=== PATIENT | male | born 1960 | race Caucasian/White ===

== ENCOUNTER → 2017-12-20 06:51 | Outpatient (CLI) | payer OTHER, SELFPAY ==
[2017-12-20 07:02] LABS: Bacteria Urine None Seen; RBC Urine None Seen (0-5/HPF); WBC Urine None Seen (0-5/HPF)
[2017-12-20 08:15] LABS: Appearance Urine UA CLEAR; Bilirubin Urine UA NEGATIVE (NEGATIVE); Color Urine UA YELLOW; Glucose Urine UA TRACE g/dL (Normal); Ketones Urine UA TRACE (NEGATIVE); Leukocyte Esterase Urine UA NEGATIVE (NEGATIVE); Nitrite Urine UA Negative (Negative); Occult Blood Urine UA NEGATIVE (Negative); Protein Urine UA NEGATIVE (Negative); Specific Gravity Urine UA 1.025 (1.000-1.035); Urobilinogen Urine UA 0.2 E.U./dL (0.2); pH Urine UA 5.5 (4.5-8.0)
[2017-12-20 08:21] LABS: Culture Indicated Urine Cult Not Indicated; Urine Comments Microscopic Normal
[2017-12-20 08:54] LABS: BUN Creatinine Ratio 18.9 (6-22); Blood Urea Nitrogen 17 mg/dL (9-20); Calcium 10.3 mg/dL (8.4-10.2); Carbon Dioxide 29 mmol/L (22-32); Chloride 101 mmol/L (98-107); Cholesterol 219 mg/dL (140-199); Estimated Glomerular Filt Rate > 60.0 mL/min (>60); Glucose 136 mg/dL (70-100); HDL Cholesterol 62 mg/dL (40-60); HEMOLYSIS < 15 (0-50); LDL Cholesterol Calculated 133 mg/dL (<100); Potassium 4.3 mmol/L (3.4-5.1); Sodium 139 mmol/L (137-145); Triglycerides 119 mg/dL (35-150)
== END ==
PROVIDERS: PCP Family Medicine; Visit Provider Family Medicine
DX: R30.0 Dysuria (principal); E11.9 Type 2 diabetes mellitus without complications
CPT/HCPCS: 36415; 80048; 80061; 81001; 83036

== ENCOUNTER → 2018-02-21 15:25 | Outpatient (CLI) | payer OTHER, SELFPAY ==
--- NOTE | 2018-02-21 15:26 | DI.US.S_ITS ---
PROCEDURE: US SCROTUM INDICATIONS: rt testicular scrotal pain with bladder pain TECHNIQUE: Real-time scanning was performed of the scrotum and testicles, with image documentation. Color and pulse Doppler interrogation was performed of both testicles. COMPARISON: [facility], CT, KIDNEY/ URETER/BLADDER, 11/24/2013, 5:33. FINDINGS: Right: Testicle is normal in size at 4.2 x 2.2 x 2.4 cm, and homogenous in echotexture. Epididymis is normal in overall size and morphology. Subcentimeter epididymal cysts No hydrocele and moderate varicocele. Overlying scrotal skin is normal in thickness. Left: Testicle is normal in size at 3.6 x 2.1 x 1.9 cm, and homogeneous in echotexture. Epididymis is normal in overall size and morphology. No hydrocele in moderate left varicocele. Overlying scrotal skin is normal in thickness. Doppler: Color and pulse Doppler demonstrate normal and symmetric arterial flow in both testicles. IMPRESSION: 1. Normal testicles bilaterally. 2. Subcentimeter right epididymal cyst. 3. Bilateral varicoceles, left greater than right. Dictated by: Vin IZAGUIRRE Interpreted: Mark Vidal MD on 02/21/2018 at 16:35 Approved by: Mark Vidal M.D. on 02/21/2018 at 17:33
== END ==
PROVIDERS: Family Provider Family Medicine; PCP Family Medicine; Visit Provider Family Medicine
DX: I86.1 Scrotal varices (principal); N50.82 Scrotal pain; N50.3 Cyst of epididymis; R39.89 Other symptoms and signs involving the genitourinary system
CPT/HCPCS: 76870

== ENCOUNTER → 2018-02-24 08:05 | Outpatient (CLI) | payer OTHER, SELFPAY ==
--- NOTE | 2018-02-24 08:46 | DI.CT.S_ITS ---
PROCEDURE: CT KIDNEY URETER BLADDER (KUB) INDICATIONS: Right testicular scrotal pain with bladder pain TECHNIQUE: Noncontrast 5 mm thick sections acquired from the diaphragms to the symphysis. 5 mm thick coronal and sagittal reformats were then performed. For radiation dose reduction, the following was used: automated exposure control, adjustment of mA and/or kV according to patient size. COMPARISON: , CT, KIDNEY/ URETER/BLADDER, 11/24/2013, 5:33. FINDINGS: Image quality: Excellent. Please note that the scrotum and testicles was not included on [id number] this exam. Lung bases: Lung bases are clear. Heart size is normal. Urinary system: Both kidneys are normal in size. There are 2 nonobstructing nephroliths in the left kidney, largest measuring up to 4 mm in greatest diameter. No hydronephrosis or perinephric fat stranding. Both ureters appear non-dilated throughout their expected courses. Bladder wall thickness is normal; no calcified bladder stones. There are possible small posterior bilateral bladder diverticula, although evaluation is suboptimal due to lack of contrast. Previously noted stone at the distal left ureter/ureterovesicular junction is no longer seen. Other solid organs: Liver is normal in size. Gallbladder is unremarkable. Pancreas is normal in contours. Spleen is normal in size. No adrenal nodules. Peritoneum and bowel: Unenhanced bowel loops demonstrate normal wall thickness and caliber. No free fluid or air. Normal appendix. Colonic diverticulosis without evidence of acute diverticulitis. Nodes and vessels: No retroperitoneal or mesenteric adenopathy by size criteria. Aorta and inferior vena cava are normal in caliber. Abdominal wall: No ventral hernias. Pelvis: No free pelvic fluid. No inguinal hernias or adenopathy. Bones: There are severe multilevel degenerative changes of the lower lumbar spine with L4 pars defects resulting in approximately 1.0 cm of anterolisthesis of L4 on L5. IMPRESSION: #1. Nonobstructing left nephrolithiasis, measuring up to 4 mm in greatest diameter. #2. Multilevel degenerative changes of the lumbar spine resulting in anterolisthesis of L4 on L5. #3. Please note that this CT exam did not include the scrotum and testicles; recommend clinical followup for patient's reported right testicular scrotal pain. Dictated by: Jaxon Abarca M.D. on 02/24/2018 at 9:44 Approved by: Jaxon Abarca M.D. on 02/24/2018 at 10:08
== END ==
PROVIDERS: Family Provider Family Medicine; PCP Family Medicine; Visit Provider Family Medicine
DX: R39.89 Other symptoms and signs involving the genitourinary system (principal); R10.31 Right lower quadrant pain; N20.0 Calculus of kidney; N50.811 Right testicular pain; N50.82 Scrotal pain; M43.16 Spondylolisthesis, lumbar region; I86.1 Scrotal varices
CPT/HCPCS: 74176

== ENCOUNTER → 2019-01-06 11:18 | Outpatient (CLI) | payer OTHER, SELFPAY ==
[2019-01-06 12:21] LABS: Add Manual Diff / Slide Review NO; Basophils Absolute Auto 0 /uL (0-100); Basophils Percent Auto 0.7 % (0-2); Eosinophils Absolute Auto 100 /uL (0-450); Eosinophils Percent Auto 1.2 % (2-4); Hematocrit 44.6 % (41-53); Hemoglobin 15.5 g/dL (13.5-17.5); Lymphocytes Absolute Auto 2700 /uL (1100-4500); Lymphocytes Percent Auto 46.6 % (25-40); Mean Corpuscular HGB Conc 34.7 % (30-36); Mean Corpuscular Hemoglobin 32.4 PG (26-34); Mean Corpuscular Volume 93.3 fL (80-100); Monocytes Absolute Auto 600 /uL (0-900); Monocytes Percent Auto 10.2 % (3-14); Neutrophils Absolute Auto 2400 /uL (1500-7000); Neutrophils Percent Auto 41.3 % (50-75); Platelet Count 302 X10^3/uL (150-400); Red Blood Cell Count 4.78 X10^6/uL (4.5-5.9); Red Cell Distribution Width 13.5 % (11.6-14.8); White Blood Cell Count 5.8 X10^3/uL (4.5-11.0)
[2019-01-06 12:29] LABS: Alanine Aminotransferase 24 IU/L (21-72); Albumin 4.6 g/dL (3.5-5.0); Albumin Globulin Ratio 1.5 (1.0-2.8); Alkaline Phosphatase 100 U/L (38-126); Aspartate Aminotransferase 27 IU/L (17-59); BUN Creatinine Ratio 18.8 (6-22); Bilirubin Total 0.7 mg/dL (0.2-1.3); Blood Urea Nitrogen 15 mg/dL (9-20); Calcium 10.5 mg/dL (8.4-10.2); Carbon Dioxide 27 mmol/L (22-32); Chloride 101 mmol/L (98-107); Cholesterol 249 mg/dL (140-199); Estimated Glomerular Filt Rate > 60.0 mL/min (>60); Glucose 159 mg/dL (70-100); HDL Cholesterol 69 mg/dL (40-60); HEMOLYSIS < 15 (0-50); LDL Cholesterol Calculated 147 mg/dL (<100); Potassium 4.9 mmol/L (3.4-5.1); Sodium 138 mmol/L (137-145); Total Protein 7.6 g/dL (6.3-8.2); Triglycerides 166 mg/dL (35-150)
[2019-01-06 12:42] LABS: Creatinine Urine Random 89.6 mg/dL
[2019-01-06 12:46] LABS: Microalbumi Creatinin Ratio Ur 23.4 ug/mg CR (<30); Microalbumin Urine Random 2.1 mg/dL (0-1.6)
[2019-01-06 13:00] LABS: Prostate Specific Antigen 0.245 ng/mL (0.10-4.00); Thyroid Stimulating Hormone 1.04 uIU/mL (0.47-4.68)
== END ==
PROVIDERS: Family Provider Family Medicine; PCP Family Medicine; Visit Provider Family Medicine
DX: E29.1 Testicular hypofunction (principal)
CPT/HCPCS: 36415; 80053; 80061; 82043; 82570; 83036; 84153; 84403; 84443; 85025

== ENCOUNTER → 2019-04-06 09:35 | Outpatient (CLI) | payer OTHER, SELFPAY ==
[2019-04-06 11:20] LABS: Alanine Aminotransferase 20 IU/L (21-72); Albumin 4.3 g/dL (3.5-5.0); Albumin Globulin Ratio 1.4 (1.0-2.8); Alkaline Phosphatase 87 U/L (38-126); Aspartate Aminotransferase 26 IU/L (17-59); BUN Creatinine Ratio 18.8 (6-22); Bilirubin Total 0.4 mg/dL (0.2-1.3); Blood Urea Nitrogen 15 mg/dL (9-20); Calcium 9.9 mg/dL (8.4-10.2); Carbon Dioxide 28 mmol/L (22-32); Chloride 103 mmol/L (98-107); Estimated Glomerular Filt Rate > 60.0 mL/min (>60); Glucose 178 mg/dL (70-100); HEMOLYSIS 20 (0-50); Potassium 4.4 mmol/L (3.4-5.1); Sodium 139 mmol/L (137-145); Total Protein 7.3 g/dL (6.3-8.2)
== END ==
PROVIDERS: PCP Family Medicine; Visit Provider Internal Medicine Cardiovascular Disease
DX: I48.3 Typical atrial flutter (principal)
CPT/HCPCS: 36415; 80053

== ENCOUNTER → 2019-05-16 07:47 | Outpatient (CLI) | payer OTHER, SELFPAY ==
[2019-05-19 17:24] LABS: Testosterone Free 45.3 pg/mL (35.0-155.0); Testosterone Total 185 ng/dL (250-1100)
== END ==
PROVIDERS: PCP Family Medicine; Visit Provider Family Medicine
DX: R68.82 Decreased libido (principal)
CPT/HCPCS: 36415; 84402; 84403

== ENCOUNTER → 2019-09-10 09:56 | Outpatient (CLI) | payer OTHER, SELFPAY ==
[2019-09-10 11:27] LABS: Influenza A - CEPHEID Flu A NEGATIVE (NEGATIVE); Influenza B - CEPHEID Flu B NEGATIVE (NEGATIVE)
[2019-09-12 11:58] LABS: COVID19 Sendout Not Detected (Not Detected)
== END ==
PROVIDERS: PCP Family Medicine; Visit Provider Family Medicine
DX: R68.89 Other general symptoms and signs (principal)
CPT/HCPCS: 87502; 87635

== ENCOUNTER → 2019-12-17 09:17 | Outpatient (CLI) | payer OTHER, SELFPAY ==
[2019-12-17 11:22] LABS: Prostate Specific Antigen 0.197 ng/mL (0.10-4.00)
[2019-12-17 11:24] LABS: Testosterone 131 ng/dL (71.8-623)
== END ==
PROVIDERS: PCP Family Medicine; Referring Provider Urology; Visit Provider Urology
DX: N40.1 Benign prostatic hyperplasia with lower urinary tract symptoms (principal); E29.1 Testicular hypofunction
CPT/HCPCS: 36415; 84153; 84403

== ENCOUNTER → 2020-07-02 06:46 | Outpatient (CLI) | payer OTHER, SELFPAY ==
--- NOTE | 2020-07-02 07:01 | DI.CT.S_ITS ---
PROCEDURE: CT SINUS SCREEN WO CON INDICATIONS: chronic sinusitis TECHNIQUE: Noncontrast 3.0 mm axial images acquired from the frontal sinuses to the mid-sella, with coronal and sagittal reformats. For radiation dose reduction, the following was used: automated exposure control, adjustment of mA and/or kV according to patient size. COMPARISON: None. FINDINGS: Image quality: Excellent. Maxillary Sinuses: No bony remodeling or destruction. Sinuses are clear. Ethmoid Air Cells: No bony remodeling or destruction. Sinuses are clear. Sphenoid Sinuses: No bony remodeling or destruction. Sinuses are clear. Frontal Sinuses: No bony remodeling or destruction. Sinuses are clear. Ostiomeatal Complexes: Ostiomeatal complexes are patent. No Reina cells. Miscellaneous: Visualized intra-orbital contents are normal. No winnie bullosa or paradoxical turbinate curvature. There is significant rightward nasal septal deviation at the middle 3rd of the nasal septum, with secondary right-sided nasal airway stenosis.. IMPRESSION: No air-fluid level or mucosal thickening found but there is relatively prominent rightward deviation of the midline nasal septum with secondary right nasal airway stenosis. Dictated by: Mark Vidal M.D. on 07/02/2020 at 9:17 Approved by: Mark Vidal M.D. on 07/02/2020 at 9:18
== END ==
PROVIDERS: PCP Family Medicine; Referring Provider Family Medicine; Visit Provider Family Medicine
DX: J32.9 Chronic sinusitis, unspecified (principal); J34.2 Deviated nasal septum; J34.89 Other specified disorders of nose and nasal sinuses
CPT/HCPCS: 70486

== ENCOUNTER → 2020-08-16 11:52 | Outpatient (CLI) | payer OTHER, SELFPAY ==
[2020-08-16 13:51] LABS: COVID19 -Nasal RAPID Negative (Negative)
== END ==
PROVIDERS: PCP Family Medicine; Visit Provider Nurse Practitioner
DX: Z20.822 Contact with and (suspected) exposure to COVID-19 (principal)
CPT/HCPCS: 87635

== ENCOUNTER 2020-08-19 06:28 | Day surgery (SDC) | payer OTHER, SELFPAY ==
[2020-08-19] MEDS: PROPARACAINE 0.5% OPHTH SOL 2 DROPS EYE-OP (07:00)
[2020-08-19] MEDS: CATARACT EYE COMPOUND (10 DROPS/SYRINGE) 3 DROPS EYE-OP (07:05)
[2020-08-19 07:06] VITALS: BP 163/82; PULSE 73; RESP 18; TEMP 36.1; O2SAT 95
--- NOTE | 2020-08-19 07:32 | P.OP_ITS ---
Operative Date/Time/Diagnoses Pre-op diagnosis: Nuclear Cataract Left eye Post-op diagnosis: same Procedure & Clinicians Same procedure as scheduled: Yes Surgeon: Sherman Chan Anesthesia Type: MAC +/- and Sedation Operative Notes Procedure in detail: Patient brought to the operating suite. Tetracaine drops placed in the left eye. Patient was prepped and draped in sterile manner. Wire lid speculum was placed in the eye. Betadine drops were placed on the eye. This was irrigated. Lidocaine jelly was placed on the eye. A paracentesis port was created with a side-port blade. 0.1 mL 1% preservative free lidocaine was injected into the anterior chamber. The anterior chamber was deepened with viscoelastic. 2.6 mm keratome was used to create a temporal clear corneal incision. Cystotome and Utrata forceps were used to create continuous tear capsulorrhexis. Balanced salt solution was used to hydro dissect the nucleus. The phacoemulsification handpiece was inserted and the nucleus was removed using the stop and chop technique. The irrigation aspiration handpiece was inserted and the remaining cortex was removed. Anterior chamber was deepened with viscoe lastic. An Garner ZCB00 intraocular lens with a power of 21.5 was injected into the capsular bag. Irrigation aspiration handpiece was inserted and the remaining viscoelastic was removed. Incision was hydrated with balanced salt solution and found to be leak free with pressure with Weck-Anat sponges. 0.1 mL Vigamox injected anterior chamber. 0.3 mL Kenalog 10 mg was injected subconjunctivally. Lid speculum was removed. The patient left the operating room in excellent condition. Complications: none Post-operative Condition: stable Disposition: same day surgery
--- NOTE | 2020-08-19 07:32 | PM.PREOP ---
Pre-operative Note Interval Note History & Physical reviewed/Exam performed by Physician: Yes Changes to H&P: No
[2020-08-19] MEDS: PHENYLEPHRINE/LIDOCAINE VIAL (OR) 0.2 ML EYE-OP (07:56)
[2020-08-19] MEDS: TRIAMCINOLONE 50 MG/5 ML VIAL INJ (07:56)
[2020-08-19] MEDS: MOXIFLOXACIN INJ 5 MG/ML VIAL EYE-OP (07:56)
[2020-08-19] MEDS: BALANCED SALT IRRIG SOLN NO.2 500 ML, EPINEPHrine 1 MG IRR (07:56)
[2020-08-19] MEDS: LIDOCAINE JELLY 2% 5 ML 1 APPLIC TOP (07:57)
[2020-08-19] MEDS: TETRACAINE 0.5% OPHTH DROPS 4 ML 2 DROPS EYE-OP (07:57)
[2020-08-19] MEDS: CHONDROIDTIN/SOD HYALURONATE 1.05 ML SYRINGE INTRAOCULA (07:57)
[2020-08-19 08:10] VITALS: BP 151/79; PULSE 72; RESP 16; TEMP 36.6; O2SAT 98
--- NOTE | 2020-08-19 08:19 | SUR.PHASEII ---
pt given discharge instructions. pt states he understands discharge instructions. Pt talking and denies any complaints. Pt drinking coffee without difficulty.
== END 2020-08-19 08:27 | disposition home or self-care (01) ==
PROVIDERS: PCP Family Medicine; Referring Provider Ophthalmology; Visit Provider Ophthalmology
PROC: (CPT 66984; principal; 2020-08-19 07:45)
DX: H25.11 Age-related nuclear cataract, right eye (principal); F41.9 Anxiety disorder, unspecified; I10 Essential (primary) hypertension; E11.9 Type 2 diabetes mellitus without complications; E78.5 Hyperlipidemia, unspecified
CPT/HCPCS: 66984; J0171; J2250; J3010; J3301

== ENCOUNTER → 2020-11-15 09:07 | Outpatient (CLI) | payer OTHER, SELFPAY ==
[2020-11-15 11:49] LABS: COVID19 -Nasal RAPID Negative (Negative)
== END ==
PROVIDERS: PCP Family Medicine; Visit Provider Physician Assistant
DX: Z01.812 Encounter for preprocedural laboratory examination (principal); Z20.822 Contact with and (suspected) exposure to COVID-19
CPT/HCPCS: 87635

== ENCOUNTER 2020-11-18 06:31 | Day surgery (SDC) | payer OTHER, SELFPAY ==
[2020-11-18 07:09] VITALS: BP 172/93; PULSE 77; RESP 18; TEMP 36.3; O2SAT 97; BMI 30.5
[2020-11-18] MEDS: PROPARACAINE 0.5% OPHTH SOL 2 DROPS EYE-OP (07:10)
[2020-11-18] MEDS: CATARACT EYE COMPOUND (10 DROPS/SYRINGE) 3 DROPS EYE-OP (07:20)
--- NOTE | 2020-11-18 07:34 | P.OP_ITS ---
Operative Date/Time/Diagnoses Pre-op diagnosis: Nuclear Cataract Left eye Post-op diagnosis: same Procedure & Clinicians Same procedure as scheduled: Yes Surgeon: Sherman Chan Anesthesia Type: MAC +/- and Sedation Operative Notes Procedure in detail: Patient brought to the operating suite. Tetracaine drops placed in the left eye. Patient was prepped and draped in sterile manner. Wire lid speculum was placed in the eye. Betadine drops were placed on the eye. This was irrigated. Lidocaine jelly was placed on the eye. A paracentesis port was created with a side-port blade. 0.1 mL 1% preservative free lidocaine was injected into the anterior chamber. The anterior chamber was deepened with viscoelastic. 2.6 mm keratome was used to create a temporal clear corneal incision. Cystotome and Utrata forceps were used to create continuous tear capsulorrhexis. Balanced salt solution was used to hydro dissect the nucleus. The phacoemulsification handpiece was inserted and the nucleus was removed using the stop and chop technique. The irrigation aspiration handpiece was inserted and the remaining cortex was removed. Anterior chamber was deepened with viscoe lastic. An Garner DIB00 intraocular lens with a power of 21.0 was injected into the capsular bag. Irrigation aspiration handpiece was inserted and the remaining viscoelastic was removed. Incision was hydrated with balanced salt solution and found to be leak free with pressure with Weck-Anat sponges. 0.1 mL Vigamox injected anterior chamber. 0.3 mL Kenalog 10 mg was injected subconjunctivally. Lid speculum was removed. The patient left the operating room in excellent condition. Complications: none Post-operative Condition: stable Disposition: same day surgery
--- NOTE | 2020-11-18 07:34 | PM.PREOP ---
Pre-operative Note Interval Note History & Physical reviewed/Exam performed by Physician: Yes Changes to H&P: No
[2020-11-18] MEDS: CHONDROIDTIN/SOD HYALURONATE 1.05 ML SYRINGE INTRAOCULA (07:46)
[2020-11-18] MEDS: MOXIFLOXACIN INJ 4 MG/0.8 ML VIAL 0.5 MG EYE-OP (07:47)
[2020-11-18] MEDS: LIDOCAINE 2% (GLYDO) 6 ML GEL TOP (07:48)
[2020-11-18] MEDS: PHENYLEPHRINE/LIDOCAINE VIAL (OR) 0.2 ML EYE-OP (07:48)
[2020-11-18] MEDS: BALANCED SALT IRRIG SOLN NO.2 500 ML, EPINEPHrine 1 MG IRR (07:57)
[2020-11-18] MEDS: TRIAMCINOLONE 50 MG/5 ML VIAL INJ (07:57)
[2020-11-18] MEDS: TETRACAINE 0.5% OPHTH DROPS 4 ML 2 DROPS EYE-OP (07:58)
[2020-11-18 08:07] VITALS: BP 142/89; PULSE 73; RESP 14; TEMP 36.4; O2SAT 96
--- NOTE | 2020-11-18 08:07 | SUR.OPER ---
Supine on eye stretcher, head on extension cradle. Arms tucked at sides with blanket. Pillow under knees.
[2020-11-18 08:17] VITALS: BP 142/87; PULSE 71; RESP 16; TEMP 36.3; O2SAT 96
== END 2020-11-18 08:29 | disposition home or self-care (01) ==
PROVIDERS: PCP Family Medicine; Referring Provider Family Medicine; Visit Provider Ophthalmology
PROC: (CPT 66984; principal; 2020-11-18 07:45)
DX: H25.12 Age-related nuclear cataract, left eye (principal); F41.9 Anxiety disorder, unspecified; I10 Essential (primary) hypertension; E11.9 Type 2 diabetes mellitus without complications; Z79.84 Long term (current) use of oral hypoglycemic drugs; I49.9 Cardiac arrhythmia, unspecified
CPT/HCPCS: 66984; J0171; J2250; J3010; J3301

== ENCOUNTER → 2021-10-06 07:01 | Outpatient (CLI) | payer OTHER, SELFPAY ==
[2021-10-06 08:30] LABS: Hemoglobin A1C% w Est Avg Glu 10.3 % (4.0-6.0)
[2021-10-06 08:35] LABS: Add Manual Diff / Slide Review NO; Basophils Absolute Auto 0 /uL (0-100); Basophils Percent Auto 0.5 % (0-2); Eosinophils Absolute Auto 100 /uL (0-450); Hematocrit 44.1 % (41-53); Hemoglobin 14.8 g/dL (13.5-17.5); Lymphocytes Absolute Auto 2800 /uL (1100-4500); Lymphocytes Percent Auto 48.1 % (25-40); Mean Corpuscular HGB Conc 33.5 % (30-36); Mean Corpuscular Hemoglobin 31.4 PG (26-34); Mean Corpuscular Volume 93.9 fL (80-100); Monocytes Absolute Auto 600 /uL (0-900); Monocytes Percent Auto 10.5 % (3-14); Neutrophils Absolute Auto 2300 /uL (1500-7000); Neutrophils Percent Auto 39.9 % (50-75); Platelet Count 262 X10^3/uL (150-400); Red Cell Distribution Width 13.5 % (11.6-14.8); White Blood Cell Count 5.9 X10^3/uL (4.5-11.0)
[2021-10-06 08:44] LABS: Alanine Aminotransferase 17 IU/L (<50); Albumin 4.2 g/dL (3.5-5.0); Albumin Globulin Ratio 1.6 (1.0-2.8); Alkaline Phosphatase 90 U/L (38-126); Aspartate Aminotransferase 23 IU/L (17-59); BUN Creatinine Ratio 16.1 (6-22); Bilirubin Total 0.4 mg/dL (0.2-1.3); Blood Urea Nitrogen 14 mg/dL (9-20); Calcium 10.2 mg/dL (8.4-10.2); Carbon Dioxide 27 mmol/L (22-32); Chloride 104 mmol/L (98-107); Cholesterol 169 mg/dL (140-199); Creatinine Urine Random 103.2 mg/dL; Estimated Glomerular Filt Rate > 60 mL/min (>60); Globulin 2.7 g/dL (1.7-4.1); Glucose 216 mg/dL (80-110); HDL Cholesterol 65 mg/dL (40-60); HEMOLYSIS < 15 (0-50); LDL Cholesterol Calculated 80 mg/dL (<100); Sodium 138 mmol/L (137-145); Total Protein 6.9 g/dL (6.3-8.2); Triglycerides 120 mg/dL (35-150)
[2021-10-06 08:49] LABS: Microalbumi Creatinin Ratio Ur 33.9 ug/mg CR (<30); Microalbumin Urine Random 3.5 mg/dL (0-1.6)
[2021-10-06 09:12] LABS: Prostate Specific Antigen Scrn 0.259 ng/mL (0.1-4.0); TSH w/ Reflex to FT4 1.75 uIU/mL (0.47-4.68)
[2021-10-06 09:15] LABS: Testosterone 152 ng/dL (71.8-623)
== END ==
PROVIDERS: PCP Family Medicine; Referring Provider Family Medicine; Visit Provider Family Medicine
DX: E11.9 Type 2 diabetes mellitus without complications (principal); E78.5 Hyperlipidemia, unspecified; I10 Essential (primary) hypertension; I48.92 Unspecified atrial flutter; R79.89 Other specified abnormal findings of blood chemistry; Z12.5 Encounter for screening for malignant neoplasm of prostate
CPT/HCPCS: 36415; 80053; 80061; 82043; 82570; 83036; 84403; 84443; 85025; G0103

== ENCOUNTER → 2022-03-05 08:11 | Outpatient (CLI) | payer OTHER, SELFPAY ==
[2022-03-05 09:31] LABS: Hemoglobin A1C% w Est Avg Glu 7.3 % (4.0-6.0)
[2022-03-05 09:46] LABS: Glucose 140 mg/dL (80-110)
[2022-03-05 10:17] LABS: Testosterone 164 ng/dL (71.8-623)
== END ==
PROVIDERS: PCP Family Medicine; Referring Provider Family Medicine; Visit Provider Family Medicine
DX: E11.9 Type 2 diabetes mellitus without complications (principal); R79.89 Other specified abnormal findings of blood chemistry
CPT/HCPCS: 36415; 82947; 83036; 84403

== ENCOUNTER → 2022-08-17 17:29 | Outpatient (CLI) | payer OTHER, SELFPAY ==
[2022-08-17 18:03] LABS: BUN Creatinine Ratio 17.5 (6-22); Blood Urea Nitrogen 18 mg/dL (9-20); Calcium 10.1 mg/dL (8.4-10.2); Carbon Dioxide 24 mmol/L (22-32); Chloride 101 mmol/L (98-107); Estimated Glomerular Filt Rate > 60 mL/min (>60); Glucose 135 mg/dL (80-110); HEMOLYSIS < 15 (0-50); Magnesium 1.9 mg/dL (1.6-2.3); Potassium 4.3 mmol/L (3.4-5.1); Sodium 134 mmol/L (137-145)
== END ==
PROVIDERS: PCP Family Medicine; Referring Provider Internal Medicine Cardiovascular Disease; Visit Provider Internal Medicine Cardiovascular Disease
DX: I48.3 Typical atrial flutter (principal)
CPT/HCPCS: 36415; 80048; 83735

== ENCOUNTER → 2023-02-23 07:27 | Outpatient (CLI) | payer OTHER, SELFPAY ==
[2023-02-23 08:13] LABS: Hemoglobin A1C% w Est Avg Glu 8.2 % (4.0-6.0)
[2023-02-23 08:22] LABS: Add Manual Diff / Slide Review NO; Basophils Absolute Auto 0 /uL (0-100); Basophils Percent Auto 0.5 % (0-2); Eosinophils Absolute Auto 100 /uL (0-450); Eosinophils Percent Auto 1.4 % (2-4); Hematocrit 41.7 % (41-53); Hemoglobin 14.4 g/dL (13.5-17.5); Lymphocytes Absolute Auto 2900 /uL (1100-4500); Lymphocytes Percent Auto 46.2 % (25-40); Mean Corpuscular HGB Conc 34.6 % (30-36); Mean Corpuscular Hemoglobin 32.3 PG (26-34); Mean Corpuscular Volume 93.3 fL (80-100); Monocytes Absolute Auto 700 /uL (0-900); Monocytes Percent Auto 10.9 % (3-14); Neutrophils Absolute Auto 2600 /uL (1500-7000); Platelet Count 282 X10^3/uL (150-400); Red Blood Cell Count 4.47 X10^6/uL (4.5-5.9); Red Cell Distribution Width 13.6 % (11.6-14.8); White Blood Cell Count 6.3 X10^3/uL (4.5-11.0)
[2023-02-23 08:27] LABS: Alanine Aminotransferase 20 IU/L (<50); Albumin 4.2 g/dL (3.5-5.0); Albumin Globulin Ratio 1.4 (1.0-2.8); Alkaline Phosphatase 83 U/L (38-126); Aspartate Aminotransferase 25 IU/L (17-59); BUN Creatinine Ratio 16.5 (6-22); Bilirubin Total 0.5 mg/dL (0.2-1.3); Blood Urea Nitrogen 13 mg/dL (9-20); Calcium 10.3 mg/dL (8.4-10.2); Carbon Dioxide 26 mmol/L (22-32); Chloride 102 mmol/L (98-107); Cholesterol 175 mg/dL (140-199); Estimated Glomerular Filt Rate > 60 mL/min (>60); Globulin 2.9 g/dL (1.7-4.1); Glucose 202 mg/dL (80-110); HDL Cholesterol 60 mg/dL (40-60); HEMOLYSIS < 15 (0-50); LDL Cholesterol Calculated 83 mg/dL (<100); Potassium 4.4 mmol/L (3.4-5.1); Sodium 137 mmol/L (137-145); Total Protein 7.1 g/dL (6.3-8.2); Triglycerides 158 mg/dL (35-150)
[2023-02-23 08:53] LABS: TSH w/ Reflex to FT4 1.11 uIU/mL (0.47-4.68)
[2023-02-23 08:57] LABS: Prostate Specific Antigen 0.251 ng/mL (0.10-4.00)
[2023-02-23 10:46] LABS: Creatinine Urine Random 170.6 mg/dL
[2023-02-23 10:48] LABS: Microalbumi Creatinin Ratio Ur 20.5 ug/mg CR (<30); Microalbumin Urine Random 3.5 mg/dL (0-1.6)
[2023-02-24 18:25] LABS: Testosterone 206 ng/dL (71.8-623)
== END ==
PROVIDERS: PCP Family Medicine; Referring Provider Family Medicine; Visit Provider Family Medicine
DX: E11.9 Type 2 diabetes mellitus without complications (principal); E66.9 Obesity, unspecified; E78.2 Mixed hyperlipidemia; I10 Essential (primary) hypertension; Z12.5 Encounter for screening for malignant neoplasm of prostate; R79.89 Other specified abnormal findings of blood chemistry
CPT/HCPCS: 36415; 80053; 80061; 82043; 82570; 83036; 84153; 84403; 84443; 85025

== ENCOUNTER → 2023-06-17 07:09 | Outpatient (CLI) | payer OTHER, SELFPAY ==
--- NOTE | 2023-06-17 07:12 | DI.MRI.S_ITS ---
PROCEDURE: MR KNEE LT WO CON INDICATIONS: LEFT KNEE PAIN TECHNIQUE: Noncontrast sagittal PD fast spin echo and T2 fast spin echo with fat saturation, sagittal 3-D FLASH with fat saturation; coronal T1 spin echo and PD fast spin echo with fat saturation, and axial PD fast spin echo with fat saturation through the knee. COMPARISON: [facility], CR, XR KNEE 4+ VIEWS LEFT, 06/14/2023, 16:50. FINDINGS: Image quality: Excellent. Anterior Cruciate Ligament: Anterior cruciate ligament appears attenuated, which may be related to degeneration or chronic partial tearing. Some of the ligament fibers remain in continuity. Posterior Cruciate Ligament: Intact. Medial Collateral Ligament: Intact. Lateral Collateral Ligament: Intact. Medial Meniscus: Radial tearing is seen at the junction of the posterior horn and body of the medial meniscus with superimposed diffuse complex degenerative tearing and maceration. The meniscal body is extruded beyond the femorotibial joint line. Lateral Meniscus: Mild intrasubstance degeneration without a discrete tear. Medial and Lateral Tendons: The semimembranosus tendon insertions and meniscocapsular junction appear intact. Visualized portions of the pes anserinus tendons appear normal. No abnormal bursal fluid. The long and short heads of the biceps femoris tendon appear intact. The popliteus tendon appears intact. No signs of posterolateral corner injury. Iliotibial band appears normal. Anterior Structures: The quadriceps and patellar tendons appear intact. No patellar subluxation. No femoral trochlear dysplasia or ventral trochlear prominence. No edema in the infrapatellar fat pad. Bones: No acute trabecular bone injury or fracture. Medial Femorotibial Cartilage: There is a large area of full-thickness cartilage loss in the weight-bearing portion of the medial femorotibial compartment with subchondral edema, marginal osteophyte formation, and mild remodeling of the medial tibial plateau articular surface. Lateral Femorotibial Cartilage: High-grade cartilage irregularity is seen in the weight-bearing portion of the lateral femorotibial compartment with areas of full-thickness cartilage loss and subchondral osteophyte formation at the posterior weight-bearing portion of the lateral femoral condyle. Small marginal osteophytes are present. Patellofemoral Cartilage: High-grade cartilage irregularity is seen at the trochlear groove. There is focal full-thickness cartilage loss and subchondral osteophyte formation at the medial femoral trochlea. Deep cartilage fissuring is seen at the median ridge of the patella. Small marginal osteophytes are present. Soft Tissues: Moderate to large joint effusion is present. Trace medial popliteal cyst. The musculature surrounding the knee is normal in bulk. IMPRESSION: 1. Tricompartmental osteoarthrosis, which is most notable in the medial femorotibial compartment with there is a large area of full-thickness cartilage loss in the weight-bearing portion with mild articular surface remodeling. Focal areas of full-thickness cartilage loss are seen in the lateral and anterior compartments with subchondral osteophyte formation. Tricompartmental marginal osteophytes are present. 2. Radial tear at the junction of the posterior horn and body of the medial meniscus, superimposed on diffuse complex degenerative tearing and maceration. 3. Intrasubstance degeneration in the lateral meniscus without a discrete tear. 4. Attenuated appearance of the anterior cruciate ligament may indicate a chronic partial tear versus degeneration. Some of the ligament fibers remain in continuity. 5. Moderate to large joint effusion. Approved by: Pepe Betts M.D. on 06/17/2023 at 9:57
== END ==
LOC: MRI 07:10
PROVIDERS: PCP Family Medicine; Referring Provider Orthopaedic Surgery; Visit Provider Orthopaedic Surgery
DX: S76.112A Strain of left quadriceps muscle, fascia and tendon, initial encounter (principal); S83.242A Other tear of medial meniscus, current injury, left knee, initial encounter; M25.462 Effusion, left knee; M17.12 Unilateral primary osteoarthritis, left knee
CPT/HCPCS: 73721

== ENCOUNTER → 2023-08-05 08:37 | Outpatient (CLI) | payer OTHER, SELFPAY ==
[2023-08-05 09:43] LABS: BUN Creatinine Ratio 24.4 (6-22); Blood Urea Nitrogen 20 mg/dL (9-20); Calcium 10.8 mg/dL (8.4-10.2); Carbon Dioxide 25 mmol/L (22-32); Chloride 105 mmol/L (98-107); Estimated Glomerular Filt Rate > 60 mL/min (>60); Glucose 183 mg/dL (80-110); HEMOLYSIS < 15 (0-50); Potassium 4.6 mmol/L (3.4-5.1); Sodium 137 mmol/L (137-145)
== END ==
PROVIDERS: PCP Family Medicine; Referring Provider Internal Medicine Cardiovascular Disease; Visit Provider Internal Medicine Cardiovascular Disease
DX: Z51.81 Encounter for therapeutic drug level monitoring (principal); I48.3 Typical atrial flutter; Z79.899 Other long term (current) drug therapy
CPT/HCPCS: 36415; 80048

== ENCOUNTER → 2023-10-04 07:03 | Outpatient (CLI) | payer OTHER, SELFPAY ==
[2023-10-04 07:43] LABS: Add Manual Diff / Slide Review NO; Basophils Absolute Auto 0 /uL (0-100); Basophils Percent Auto 0.7 % (0-2); Eosinophils Absolute Auto 100 /uL (0-450); Eosinophils Percent Auto 1.4 % (2-4); Hematocrit 43.2 % (41-53); Hemoglobin 14.4 g/dL (13.5-17.5); Lymphocytes Absolute Auto 3300 /uL (1100-4500); Lymphocytes Percent Auto 49.6 % (25-40); Mean Corpuscular HGB Conc 33.3 % (30-36); Mean Corpuscular Hemoglobin 31.9 PG (26-34); Monocytes Absolute Auto 800 /uL (0-900); Monocytes Percent Auto 11.7 % (3-14); Neutrophils Absolute Auto 2400 /uL (1500-7000); Neutrophils Percent Auto 36.6 % (50-75); Platelet Count 292 X10^3/uL (150-400); Red Blood Cell Count 4.51 X10^6/uL (4.5-5.9); Red Cell Distribution Width 13.3 % (11.6-14.8); White Blood Cell Count 6.7 X10^3/uL (4.5-11.0)
[2023-10-04 07:50] LABS: Hemoglobin A1C% w Est Avg Glu 8.6 % (4.0-6.0)
[2023-10-04 07:55] LABS: Alanine Aminotransferase 24 IU/L (<50); Albumin 4.7 g/dL (3.5-5.0); Albumin Globulin Ratio 1.5 (1.0-2.8); Alkaline Phosphatase 87 U/L (38-126); Aspartate Aminotransferase 33 IU/L (17-59); BUN Creatinine Ratio 23.1 (6-22); Bilirubin Total 0.5 mg/dL (0.2-1.3); Blood Urea Nitrogen 18 mg/dL (9-20); Calcium 10.3 mg/dL (8.4-10.2); Carbon Dioxide 26 mmol/L (22-32); Chloride 106 mmol/L (98-107); Cholesterol 159 mg/dL (140-199); Estimated Glomerular Filt Rate > 60 mL/min (>60); Globulin 3.1 g/dL (1.7-4.1); Glucose 174 mg/dL (80-110); HDL Cholesterol 55 mg/dL (40-60); HEMOLYSIS 28 (0-50); LDL Cholesterol Calculated 64 mg/dL (<100); Potassium 4.4 mmol/L (3.4-5.1); Sodium 138 mmol/L (137-145); Total Protein 7.8 g/dL (6.3-8.2); Triglycerides 201 mg/dL (35-150)
[2023-10-04 08:08] LABS: Microalbumi Creatinin Ratio Ur 42.6 ug/mg CR (<30); Microalbumin Urine Random 7.3 mg/dL (0-1.6)
== END ==
PROVIDERS: PCP Family Medicine; Referring Provider Family Medicine; Visit Provider Family Medicine
DX: E11.9 Type 2 diabetes mellitus without complications (principal); R79.89 Other specified abnormal findings of blood chemistry; I10 Essential (primary) hypertension; I48.92 Unspecified atrial flutter
CPT/HCPCS: 36415; 80053; 80061; 82043; 82570; 83036; 85025

== ENCOUNTER → 2023-11-08 07:25 | Outpatient (CLI) | payer OTHER, SELFPAY ==
[2023-11-08 08:19] LABS: Hemoglobin A1C% w Est Avg Glu 7.9 % (4.0-6.0)
[2023-11-09 07:36] LABS: Fructosamine 261 umol/L (0-285)
== END ==
LOC: LAB 07:27
PROVIDERS: PCP Family Medicine; Referring Provider Orthopaedic Surgery; Visit Provider Orthopaedic Surgery
DX: E11.9 Type 2 diabetes mellitus without complications (principal)
CPT/HCPCS: 36415; 82985; 83036

== ENCOUNTER → 2024-06-29 08:36 | Outpatient (CLI) | payer OTHER, SELFPAY ==
[2024-06-29 09:29] LABS: BUN Creatinine Ratio 18.8 (6-22); Blood Urea Nitrogen 16 mg/dL (9-20); Calcium 10.9 mg/dL (8.4-10.2); Carbon Dioxide 26 mmol/L (22-32); Chloride 103 mmol/L (98-107); Estimated Glomerular Filt Rate > 60 mL/min (>60); Glucose 188 mg/dL (80-110); HEMOLYSIS < 15 (0-50); Magnesium 1.6 mg/dL (1.6-2.3); Potassium 4.4 mmol/L (3.4-5.1); Sodium 136 mmol/L (137-145)
== END ==
PROVIDERS: PCP Family Medicine; Referring Provider Nurse Practitioner; Visit Provider Nurse Practitioner
DX: I48.3 Typical atrial flutter (principal)
CPT/HCPCS: 36415; 80048; 83735

== ENCOUNTER → 2024-11-16 07:15 | Outpatient (CLI) | payer OTHER, SELFPAY ==
[2024-11-16 07:41] LABS: Add Manual Diff / Slide Review NO; Basophils Absolute Auto 0 /uL (0-100); Basophils Percent Auto 0.7 % (0-2); Eosinophils Absolute Auto 100 /uL (0-450); Eosinophils Percent Auto 1.6 % (2-4); Hematocrit 42.5 % (41-53); Hemoglobin 14.4 g/dL (13.5-17.5); Lymphocytes Absolute Auto 2800 /uL (1100-4500); Lymphocytes Percent Auto 42.1 % (25-40); Mean Corpuscular Hemoglobin 32.6 PG (26-34); Mean Corpuscular Volume 95.8 fL (80-100); Monocytes Absolute Auto 800 /uL (0-900); Monocytes Percent Auto 11.2 % (3-14); Neutrophils Absolute Auto 3000 /uL (1500-7000); Neutrophils Percent Auto 44.4 % (50-75); Platelet Count 287 X10^3/uL (150-400); Red Blood Cell Count 4.44 X10^6/uL (4.5-5.9); Red Cell Distribution Width 13.4 % (11.6-14.8); White Blood Cell Count 6.7 X10^3/uL (4.5-11.0)
[2024-11-16 07:52] LABS: Hemoglobin A1C% w Est Avg Glu 7.1 % (4.0-6.0)
[2024-11-16 08:07] LABS: Alanine Aminotransferase 19 IU/L (<50); Albumin 4.4 g/dL (3.5-5.0); Albumin Globulin Ratio 1.6 (1.0-2.8); Alkaline Phosphatase 92 U/L (38-126); Aspartate Aminotransferase 27 IU/L (17-59); BUN Creatinine Ratio 21.8 (6-22); Bilirubin Total 0.3 mg/dL (0.2-1.3); Blood Urea Nitrogen 22 mg/dL (9-20); Calcium 10.5 mg/dL (8.4-10.2); Carbon Dioxide 25 mmol/L (22-32); Chloride 105 mmol/L (98-107); Cholesterol 208 mg/dL (140-199); Estimated Glomerular Filt Rate > 60 mL/min (>60); Globulin 2.8 g/dL (1.7-4.1); Glucose 178 mg/dL (70-99); HDL Cholesterol 55 mg/dL (40-60); HEMOLYSIS < 15 (0-50); Sodium 138 mmol/L (137-145); Total Protein 7.2 g/dL (6.3-8.2)
[2024-11-16 08:08] LABS: Potassium 5.4 mmol/L (3.4-5.1)
[2024-11-16 08:27] LABS: Triglycerides 675 mg/dL (35-150)
[2024-11-16 08:31] LABS: TSH w/ Reflex to FT4 1.13 uIU/mL (0.47-4.68)
[2024-11-16 08:34] LABS: Testosterone 182 ng/dL (71.8-623)
[2024-11-16 09:16] LABS: Creatinine Urine Random 123.98 mg/dL
[2024-11-16 09:21] LABS: Microalbumin Urine Random 10.7 mg/dL (0-1.6)
== END ==
PROVIDERS: PCP Family Medicine; Referring Provider Family Medicine; Visit Provider Family Medicine
DX: R79.89 Other specified abnormal findings of blood chemistry (principal); E78.2 Mixed hyperlipidemia; I48.92 Unspecified atrial flutter; E11.9 Type 2 diabetes mellitus without complications; Z98.890 Other specified postprocedural states; Z86.79 Personal history of other diseases of the circulatory system
CPT/HCPCS: 36415; 80053; 80061; 82043; 82570; 83036; 84153; 84403; 84443; 85025

== ENCOUNTER → 2025-04-19 07:07 | Outpatient (CLI) | payer OTHER, SELFPAY ==
[2025-04-19 08:25] LABS: Hemoglobin A1C% w Est Avg Glu 8.7 % (4.0-6.0)
[2025-04-19 08:28] LABS: Cholesterol 152 mg/dL (140-199); HDL Cholesterol 68 mg/dL (40-60); Triglycerides 182 mg/dL (35-150)
== END ==
PROVIDERS: PCP Family Medicine; Referring Provider Family Medicine; Visit Provider Family Medicine
DX: E78.2 Mixed hyperlipidemia (principal); I10 Essential (primary) hypertension; E11.9 Type 2 diabetes mellitus without complications
CPT/HCPCS: 36415; 80061; 83036